=== PATIENT | male | born 1955 | race African-American/Black ===

== ENCOUNTER 2021-05-16 08:39 | Inpatient (IN) | payer MEDICAID ==
[~2021-05-16] VITALS: Ht 185.4 cm; Wt 100.7 kg
[2021-05-16 10:15] LABS: BASOPHILS % 0.9 % (0.0-2.0); EOSINOPHILS % 1.7 % (0.0-5.0); HEMATOCRIT. 38.3 % (42.0-52.0); HEMOGLOBIN. 12.5 g/dL (14.0-18.0); LYMPHOCYTES % 14.6 % (20.0-50.0); MEAN CORPUSCULAR HEMOGLOBIN 27.9 pg (28.0-32.0); MEAN CORPUSCULAR VOLUME 85.5 fL (80.0-94.0); MEAN PLATELET VOLUME 7.8 fl (7.4-10.4); MONOCYTES % 8.8 % (2.0-8.0); PLATELET 359 x1000/uL (130-400); RED BLOOD CELL COUNT 4.47 mill/uL (4.7-6.1); RED CELL DISTRIBUTION WIDTH 14.3 % (11.6-14.6)
[2021-05-16] MEDS ORDERED: SODIUM CHLORIDE 0.9% 1,000 ML IV ONE (10:15)
[2021-05-16 10:25] LABS: CHLORIDE 110 mEq/L (98-107)
[2021-05-16 10:28] LABS: ETHANOL BLOOD < 10 mg/dL
[2021-05-16 10:35] LABS: CLARITY URINE CLEAR (CLEAR); COLOR URINE YELLOW (YELLOW); KETONES URINE NEGATIVE (NEGATIVE); LEUKOCYTE ESTERASE URINE NEGATIVE (NEGATIVE); NITRITE URINE NEGATIVE (NEGATIVE); OCCULT BLOOD URINE 2+ (NEGATIVE); PROTEIN URINE 3+ (NEGATIVE); SPECIFIC GRAVITY URINE 1.019 (1.005-1.030); UROBILINOGEN URINE 0.2 E.U./dL (0.2-1.0)
[2021-05-16 10:57] LABS: *AMPHETAMINES SCREEN URINE NEGATIVE (NEGATIVE); *BARBITURATES SCREEN URINE NEGATIVE (NEGATIVE); *BENZODIAZEPINES SCREEN URINE NEGATIVE (NEGATIVE); *COCAINE SCREEN URINE NEGATIVE (NEGATIVE); METHADONE URINE SCREEN NEGATIVE (NEGATIVE); OPIATES URINE SCREEN NEGATIVE (NEGATIVE)
[2021-05-16 10:58] LABS: CANNABINOID URINE SCREEN NEGATIVE (NEGATIVE); PHENCYCLIDINE URINE SCREEN NEGATIVE (NEGATIVE)
[2021-05-16] MEDS ORDERED: HYDRALAZINE 20MG/ML VIAL IV ONE (12:30)
[2021-05-16] MEDS ORDERED: DEXTROSE 50% WATER 50ML SYRINGE IV PRN (18:15)
[2021-05-16] MEDS ORDERED: HYDRALAZINE 20MG/ML VIAL IV PRN (18:15)
[2021-05-16] MEDS: INSULIN LISPRO 100 UNITS/ML SUBCUT SCH ×2 (18:16→22:11)
[2021-05-16] MEDS: BLOOD SUGAR DIAGNOSTIC STRIP TEST SCH ×2 (18:57→21:09)
[2021-05-16 20:00] VITALS: BP 173/69
[2021-05-16 22:30] VITALS: BP 173/69
[2021-05-16] MEDS ORDERED: ONDANSETRON HCL 4MG/2ML INJ IV PRN (22:45)
[2021-05-16] MEDS ORDERED: IPRATROPIUM/ALBUTEROL 0.5-3(2.5)MG/3ML NEB NEB PRN (22:45)
[2021-05-16] MEDS ORDERED: ACETAMINOPHEN 325MG TABLET PO PRN (22:45)
[2021-05-16] MEDS ORDERED: MORPHINE SULFATE 2 MG/ML CPJ (NOT FOR IM USE) IV PRN ×2 (22:45→23:00)
[2021-05-16] MEDS ORDERED: NALOXONE HCL 0.4MG/ML VIAL IV PRN (23:00)
[2021-05-16] MEDS ORDERED: CLONIDINE 0.1MG TABLET PO PRN (23:00)
[2021-05-16] MEDS: AMLODIPINE 10MG TABLET PO SCH (23:50)
[2021-05-17] VITALS: BP 173/74
[2021-05-17 00:10] LABS: CREATINE KINASE MB FRACTION 7.1 ng/mL (0.5-3.6)
[2021-05-17] MEDS ORDERED: GABA-532 PO (03:39)
[2021-05-17] MEDS ORDERED: INSU100I24 SQ (03:39)
[2021-05-17] MEDS ORDERED: APIX5TAB PO (03:39)
[2021-05-17 04:00] VITALS: BP 145/78
[2021-05-17] MEDS: BLOOD SUGAR DIAGNOSTIC STRIP TEST SCH ×4 (07:01→21:45)
[2021-05-17] MEDS: INSULIN LISPRO 100 UNITS/ML SUBCUT SCH ×4 (07:06→21:00)
[2021-05-17 07:19] LABS: BASOPHILS % 1.1 % (0.0-2.0); EOSINOPHILS % 2.4 % (0.0-5.0); HEMATOCRIT. 33.7 % (42.0-52.0); HEMOGLOBIN. 11.1 g/dL (14.0-18.0); LYMPHOCYTES % 22.9 % (20.0-50.0); MEAN CORPUSCULAR HEMOGLOBIN 27.9 pg (28.0-32.0); MEAN CORPUSCULAR VOLUME 84.3 fL (80.0-94.0); MONOCYTES % 10.3 % (2.0-8.0); NEUTROPHILS % 63.3 % (40.0-76.0); PLATELET 321 x1000/uL (130-400); RED BLOOD CELL COUNT 3.99 mill/uL (4.7-6.1); RED CELL DISTRIBUTION WIDTH 14.1 % (11.6-14.6)
[2021-05-17 08:00] VITALS: BP_SYST 127; BP_SYST 156; BP_DIAS 68; BP_DIAS 77
[2021-05-17] MEDS ORDERED: ENOXAPARIN 30MG/0.3ML SYR SUBCUT SCH (09:00)
[2021-05-17] MEDS ORDERED: LISINOPRIL 20MG TABLET PO SCH (09:00)
[2021-05-17] MEDS ORDERED: ENOXAPARIN 40MG/0.4ML SYR SUBCUT SCH (09:00)
[2021-05-17] MEDS: ENOXAPARIN 30MG/0.3ML SYR SUBCUT SCH (09:42)
[2021-05-17] MEDS: FOLIC ACID 1MG TABLET PO SCH (09:43)
[2021-05-17] MEDS: AMLODIPINE 10MG TABLET PO SCH (09:43)
[2021-05-17] MEDS: METOPROLOL TARTRATE 50MG TABLET PO SCH ×2 (09:44→21:45)
[2021-05-17 12:00] VITALS: BP 127/68
[2021-05-17 13:13] LABS: CREATINE KINASE MB FRACTION 5.3 ng/mL (0.5-3.6)
[2021-05-17 16:00] VITALS: BP 117/80
[2021-05-17 16:36] LABS: CREATINE KINASE MB FRACTION 5.6 ng/mL (0.5-3.6)
[2021-05-17] MEDS: HYDROCODONE/APAP 7.5/325MG 1 TAB TABLET PO PRN (17:44)
[2021-05-17 20:00] VITALS: BP 120/63
[2021-05-17 21:25] LABS: PHOSPHORUS 3.9 mg/dL (2.5-4.9)
[2021-05-17] MEDS: ATORVASTATIN CALCIUM 20MG TABLET PO SCH (21:45)
[2021-05-17] MEDS: INSULIN GLARGINE 100 UNITS/ML SUBCUT SCH (21:54)
[2021-05-18] VITALS: BP 113/65
[2021-05-18 04:00] VITALS: BP 148/71
[2021-05-18] MEDS: BLOOD SUGAR DIAGNOSTIC STRIP TEST SCH ×4 (05:44→21:27)
[2021-05-18] MEDS: INSULIN LISPRO 100 UNITS/ML SUBCUT SCH ×4 (06:41→21:00)
[2021-05-18 08:00] VITALS: BP 148/76
[2021-05-18] MEDS: ASPIRIN 81MG TABLET PO SCH (09:48)
[2021-05-18] MEDS: METOPROLOL TARTRATE 50MG TABLET PO SCH ×2 (09:48→21:30)
[2021-05-18] MEDS: AMLODIPINE 10MG TABLET PO SCH (09:48)
[2021-05-18] MEDS: ENOXAPARIN 30MG/0.3ML SYR SUBCUT SCH (09:48)
[2021-05-18] MEDS: FOLIC ACID 1MG TABLET PO SCH (09:48)
[2021-05-18] MEDS: INSULIN GLARGINE 100 UNITS/ML SUBCUT SCH ×2 (10:00→21:34)
[2021-05-18 12:00] VITALS: BP 153/76
[2021-05-18 12:12] LABS: BASOPHILS % 1.2 % (0.0-2.0); EOSINOPHILS % 2.7 % (0.0-5.0); HEMATOCRIT. 33.5 % (42.0-52.0); LYMPHOCYTES % 25.6 % (20.0-50.0); MEAN CORPUSCULAR HEMOGLOBIN 27.9 pg (28.0-32.0); MEAN CORPUSCULAR VOLUME 84.7 fL (80.0-94.0); MEAN PLATELET VOLUME 8.1 fl (7.4-10.4); MONOCYTES % 11.7 % (2.0-8.0); NEUTROPHILS % 58.8 % (40.0-76.0); PLATELET 299 x1000/uL (130-400); RED BLOOD CELL COUNT 3.95 mill/uL (4.7-6.1); RED CELL DISTRIBUTION WIDTH 14.2 % (11.6-14.6)
[2021-05-18 16:00] VITALS: BP 138/63
[2021-05-18] MEDS ORDERED: CLOPIDOGREL 75MG TABLET PO NR (18:15)
[2021-05-18] MEDS: HYDROCODONE/APAP 7.5/325MG 1 TAB TABLET PO PRN (18:34)
[2021-05-18 20:00] VITALS: BP 152/70
[2021-05-18] MEDS: ATORVASTATIN CALCIUM 20MG TABLET PO SCH (21:30)
[2021-05-19] VITALS: BP 144/67
[2021-05-19 04:00] VITALS: BP 132/73
[2021-05-19] MEDS: BLOOD SUGAR DIAGNOSTIC STRIP TEST SCH ×4 (06:03→21:22)
[2021-05-19 06:55] LABS: BASOPHILS % 0.8 % (0.0-2.0); EOSINOPHILS % 3.3 % (0.0-5.0); HEMOGLOBIN. 11.1 g/dL (14.0-18.0); LYMPHOCYTES % 32.5 % (20.0-50.0); MEAN CORPUSCULAR HEMOGLOBIN 27.7 pg (28.0-32.0); MEAN CORPUSCULAR VOLUME 84.9 fL (80.0-94.0); MEAN PLATELET VOLUME 7.9 fl (7.4-10.4); MONOCYTES % 13.1 % (2.0-8.0); NEUTROPHILS % 50.3 % (40.0-76.0); PLATELET 316 x1000/uL (130-400); RED CELL DISTRIBUTION WIDTH 14.3 % (11.6-14.6)
[2021-05-19 07:23] LABS: PROSTRATE SPECIFIC AG TOTAL 6.41 ng/mL (0.0-4.0)
[2021-05-19 07:26] LABS: FOLIC ACID (FOLATE) SERUM 12.3 ng/mL (>5.38)
[2021-05-19] MEDS: INSULIN LISPRO 100 UNITS/ML SUBCUT SCH ×4 (07:40→21:00)
[2021-05-19 08:00] VITALS: BP 149/72
[2021-05-19] MEDS: FOLIC ACID 1MG TABLET PO SCH (09:00)
[2021-05-19] MEDS ORDERED: ENOXAPARIN 30MG/0.3ML SYR SUBCUT ONE (09:37)
[2021-05-19] MEDS ORDERED: AMLODIPINE 10MG TABLET ONE (09:38)
[2021-05-19] MEDS ORDERED: METOPROLOL TARTRATE 50MG TABLET ONE (09:38)
[2021-05-19] MEDS ORDERED: ASPIRIN 81MG EC TABLET PO ONE (09:38)
[2021-05-19] MEDS: METOPROLOL TARTRATE 50MG TABLET PO SCH ×2 (09:50→21:23)
[2021-05-19] MEDS: ENOXAPARIN 30MG/0.3ML SYR SUBCUT SCH (09:50)
[2021-05-19] MEDS: AMLODIPINE 10MG TABLET PO SCH (09:50)
[2021-05-19] MEDS ORDERED: ASPIRIN 81MG TABLET ONE (10:20)
[2021-05-19] MEDS: ASPIRIN 81MG TABLET PO SCH (10:22)
[2021-05-19] MEDS: INSULIN GLARGINE 100 UNITS/ML SUBCUT SCH ×2 (10:51→22:19)
[2021-05-19 12:30] VITALS: BP 140/76
[2021-05-19 16:00] VITALS: BP 132/63
[2021-05-19 20:00] VITALS: BP 143/66
[2021-05-19] MEDS: ATORVASTATIN CALCIUM 20MG TABLET PO SCH (21:22)
[2021-05-20] VITALS: BP 131/67
[2021-05-20 04:00] VITALS: BP 154/71
[2021-05-20] MEDS: BLOOD SUGAR DIAGNOSTIC STRIP TEST SCH ×4 (05:39→21:46)
[2021-05-20] MEDS: INSULIN LISPRO 100 UNITS/ML SUBCUT SCH ×3 (05:49→18:21)
[2021-05-20 08:00] VITALS: BP 145/63
[2021-05-20] MEDS: ASPIRIN 81MG TABLET PO SCH (09:37)
[2021-05-20] MEDS: AMLODIPINE 10MG TABLET PO SCH (09:38)
[2021-05-20] MEDS: METOPROLOL TARTRATE 50MG TABLET PO SCH ×2 (09:38→21:52)
[2021-05-20] MEDS: ENOXAPARIN 30MG/0.3ML SYR SUBCUT SCH (09:39)
[2021-05-20] MEDS: INSULIN GLARGINE 100 UNITS/ML SUBCUT SCH ×2 (11:28→21:53)
[2021-05-20 12:00] VITALS: BP 143/70
[2021-05-20] MEDS: LACTULOSE 20G/30ML UDC PO SCH ×3 (12:00→20:00)
[2021-05-20] MEDS: FOLIC ACID 1MG TABLET PO SCH (13:38)
[2021-05-20 16:00] VITALS: BP 141/69
[2021-05-20 18:29] VITALS: BP 143/69
[2021-05-20] MEDS: ATORVASTATIN CALCIUM 20MG TABLET PO SCH (21:50)
[2021-05-21] MEDS ORDERED: CLOPIDOGREL 75MG TABLET PO SCH (09:00)
[2021-05-26 04:08] LABS: 25-HYDROXY VITAMIN D3 9.1 ng/mL (.)
== END 2021-05-20 22:23 | DRG 45 ==
LOC: ER 08:49 → 8WST 12:05 → EDBEDREQ 12:07 → EDBEDREQTM 12:07
PROVIDERS: ADMIT Internal Medicine Nephrology; ATTEND Internal Medicine Nephrology
DX: I63.9 Cerebral infarction, unspecified (principal); I21.4 Non-ST elevation (NSTEMI) myocardial infarction; E43 Unspecified severe protein-calorie malnutrition; I13.0 Hypertensive heart and chronic kidney disease with heart failure and stage 1 through stage 4 chronic kidney disease, or unspecified chronic kidney disease; G81.91 Hemiplegia, unspecified affecting right dominant side; I50.9 Heart failure, unspecified; E11.22 Type 2 diabetes mellitus with diabetic chronic kidney disease; D64.9 Anemia, unspecified; N17.9 Acute kidney failure, unspecified; E11.40 Type 2 diabetes mellitus with diabetic neuropathy, unspecified; E11.65 Type 2 diabetes mellitus with hyperglycemia; E78.5 Hyperlipidemia, unspecified; E87.8 Other disorders of electrolyte and fluid balance, not elsewhere classified; F17.210 Nicotine dependence, cigarettes, uncomplicated; I16.1 Hypertensive emergency; N18.9 Chronic kidney disease, unspecified; E78.00 Pure hypercholesterolemia, unspecified; I49.3 Ventricular premature depolarization; Z79.01 Long term (current) use of anticoagulants; Z79.4 Long term (current) use of insulin; Z86.73 Personal history of transient ischemic attack (TIA), and cerebral infarction without residual deficits; Z68.29 Body mass index [BMI] 29.0-29.9, adult; Z71.6 Tobacco abuse counseling; Z79.02 Long term (current) use of antithrombotics/antiplatelets
CPT/HCPCS: 36415; 70551; 71045; 76770; 80048; 80053; 80061; 80305; 80320; 81003; 82306; 82550; 82553; 82607; 82728; 82746; 82962; 83036; 83540; 83550; 83970; 84100; 84153; 84443; 84484; 85025; 93005; 93306; 97110; 97112; 97162; 97166; 97530; 97535; 99285; J0360; J1650; J1815; J7030; G0103; G0480

== ENCOUNTER 2022-07-08 15:35 | Emergency (ER) | payer MEDICARE, MEDICAID ==
[~2022-07-08] VITALS: Ht 188 cm; Wt 86.0 kg
[~2022-07-08 15:35] MED LIST: AMLO10TA80 PO; APIX5TAB MT; ASCO500C18 PO; ASPI-1406 PO; ATOR20TA PO; AZIT500T8 PO; CALC0.253 PO; ERGO80009; FERR325T6 PO; FOLI-43 PO; HYDR-4135 MT; HYDR-4135 PO; INSU100I24 SQ; METO-539 PO; SENN-257 PO
[2022-07-08 15:39] VITALS: BP 167/71
== END 2022-07-08 16:15 ==
LOC: ER 15:35
DX: Z48.00 Encounter for change or removal of nonsurgical wound dressing (principal); E11.9 Type 2 diabetes mellitus without complications; I11.0 Hypertensive heart disease with heart failure; I50.9 Heart failure, unspecified; Z79.82 Long term (current) use of aspirin
CPT/HCPCS: 99283